=== PATIENT | female | born 1985 | race African-American/Black ===

== ENCOUNTER 2017-01-19 13:44 | Emergency (ER) | payer OTHER ==
--- NOTE | ~2017-01-19 | US85 ---
[facility]. [facility] A Service of [facility] RADIOLOGY TEXT RESULTS PATIENT: MOMO GANNON LOCATION: SED : 83 UNIT #: [id number] AGE: [address]: Manpreet Wheeler MD SEX: F ORDER DR: [id number] [address] [address] [id number] MR#: [id number] Acc #: [id number] NAME: MOMO GANNON : 1985 SEX: F STUDY DATE/TIME: 01/19/2017 16:13 UNIT: SED ROOM: STUDY DESCRIPTION: [facility] [place] [employer] Attending Physician: Manpreet Wheeler M.D. Ordering Physician: Manpreet Wheeler M.D. Primary Care Physician: Jaycee Jane M.D. MEDICAL IMAGING REPORT This report is preliminary unless electronic signature is present. EXAM Left lower extremity venous duplex, 01/19/2017 HISTORY Left posterior knee and calf pain for 4 days with no known injury. FINDINGS Lyn-scale images of the left lower extremity were obtained as well as Doppler waveform, spectral analysis and color flow Doppler imaging. There is normal blood flow and compressibility in the left common femoral vein, deep femoral vein, superficial femoral vein and popliteal vein. Normal blood flow and compressibility is seen in the left calf veins. There is a 7.4 cm x 8.9 mm x 5.2 cm fluid collection in the left popliteal fossa characteristic of a Mckeon's cyst. IMPRESSION 1. No evidence of deep vein thrombosis in the left lower extremity 2. A 7.4 cm complicated fluid collection in the left popliteal fossa probably representing a Mckeon's cyst. Dictated by... Urbano oDrsey M.D. THIS IS AN ELECTRONICALLY VERIFIED REPORT Urbano Dorsey M.D. at 01/20/2017 10:35 AM KATINA/william TD: 01/19/2017 23:45 JOB #: [id number] [facility] A Service of [facility] RADIOLOGY TEXT RESULTS PATIENT: MOMO GANNON [id number] [birth year] UNIT #: [id number] AGE: [address]: Manpreet Wheeler MD SEX: F ORDER DR: MEDICAL IMAGING REPORT Page 1 of 1
[~2017-01-19 13:44] MED LIST: ALLERGY10 M2; AUGMENTIN875 M1 DOB; CLINDAMYCIN PO; DIAZEPAM PO; MOTRIN PO; TYLENOL #3; VICODIN PO
== END 2017-01-19 16:53 | disposition home or self-care (01) ==
LOC: SED 13:44
DX: M71.22 Synovial cyst of popliteal space [Baker], left knee (principal); E66.9 Obesity, unspecified; Z87.891 Personal history of nicotine dependence
CPT/HCPCS: 29530; 93971; 99284